=== PATIENT | female | born 1985 | race Caucasian/White ===

== ENCOUNTER 2023-08-20 19:50 | Emergency (ER) | payer OTHER, SELFPAY ==
[2023-08-20 20:00] VITALS: BP 208/131; PULSE 121; RESP 18; TEMP 36.8; O2SAT 96; BMI 37.3
[2023-08-20 20:09] LABS: Glucose Point of Care 152 mg/dL (70-110)
--- NOTE | 2023-08-20 20:15 | ED_ITS ---
HPI - Dental/Oral General: Chief complaint: Dental/Oral Stated complaint: fever, tooth ache Time Seen by Provider: 08/20/23 20:14 History of Present Illness: 38-year-old female with a history of hyp ertension and diabetes who presents with tooth pain. She does not take any of her medications because of pain in her mouth today. She is a bit hypertensive on presentation. Review of Systems Narrative: Constitutional symptoms: Negative except as documented in HPI. Skin symptoms: Negative except as documented in HPI. Eye symptoms: Negative except as documented in HPI. ENMT symptoms: Negative except as documented in HPI. Respiratory symptoms: Negative except as documented in HPI. Cardiovascular symptoms: Negative except as documented in HPI. Gastrointestinal symptoms: Negative except as documented in HPI. Genitourinary symptoms: Negative except as documented in HPI. Musculoskeletal symptoms: Negative except as documented in HPI. Neurologic symptoms: Negative except as documented in HPI. Psychiatric symptoms: Negative except as documented in HPI. Endocrine symptoms: Negative except as documented in HPI. [facility] PFSH: Medical History Diabetes mellitus Dyslipidemia Eclampsia History of eclampsia at 26 weeks of gestation. Headache Hypertension Status post CVA Family History Unknown No problems noted. Mother Hypertension Hyperlipidemia Social History Smoking and tobacco/nicotine status: never used tobacco/nicotine Alcohol intake: never Substance/Drug Use: never Physical Exam Narrative: EXAM NARRATIVE: General: Alert, no acute distress. Skin: warm and dry Head: Normocephalic Neck: Trachea midline Eye: Extraocular movements are intact. Ears, nose, mouth and throat: Oral mucosa moist. Right posterior lower molar appears infected with some surrounding swelling probable abscess. Respiratory: Respirations are non-labored Musculoskeletal: Normal ROM Neurological: Alert and oriented, No focal neurological deficit observed. Psychiatric: Cooperative, appropriate mood & affect. Course Vital Signs: Vital signs: Vital Signs Temperature 98.2 F 08/20/23 20:00 Pulse Rate 121 H 08/20/23 20:00 Respiratory Rate 18 08/20/23 20:00 Blood Pressure 208/131 08/20/23 20:00 Pulse Oximetry 96 08/20/23 20:00 Oxygen Delivery Me thod Room Air 08/20/23 20:00 MDM - Dental/Oral Medical Decision Making Patient has an obvious dental infection. She is going to follow-up with a dentist. She is given clindamycin and pain medication here in the emergency room. Assessment and plan: Dental abscess - Discharged home - Discussed plan with patient. Answered any questions. - Evaluation and treatment of this problem were appropriate in the emergency setting. Lab Data Laboratory Results POC Glucose 152 mg/dL (70-110) H 08/20/23 20:06 No radiology studies performed this visit Discharge Plan Discharge Patient Disposition: Home Clinical Impression: Dental abscess Condition: Stable Prescriptions: New clindamycin HCl 300 mg capsule 600 mg PO Q8H 10 Days Qty: 60 0RF diclofenac sodium 50 mg tablet,delayed release (DR/EC) 50 mg PO Q12H Qty: 20 0RF No Action verapamil 240 mg capsule,ext rel. pellets 24 hr 240 mg PO DAILY Complete Multivitamin Tablet 1 tab PO DAILY magnesium oxide 400 mg magnesium tablet 400 mg PO DAILY potassium gluconate 595 mg (99 mg) tablet 595 mg PO DAILY metoprolol succinate 100 mg tablet extended release 24 hr 100 mg PO DAILY metformin 500 mg tablet 500 mg PO BID lisinopril 10 mg tablet 10 mg PO DAILY Qty: 90 2RF rosuvastatin 10 mg tablet 10 mg PO DAILY Qty: 90 2RF Discharge Orders: Discharge ED (Routine); Ordered 08/20/23 Ordered By: Natacha Isbell Referrals: Keysha Rae MD [Primary Care Provider] - (Please follow-up with a dentist to soon as possible. You have been screened and evaluated and felt safe for discharge. Health conditions do change or evolve sometimes and as such it is important that you follow up with your Primary Doctor to be re checked, 3-5 days is a general good time frame for follow up. You are always welcome to return to the ED for re assessment if your symptoms are worsening or you have new concerns) Patient Instructions: Dental Abscess (ED) Coding Level of Care Code ED Crane Engineer for Jenna Avila
[2023-08-20] MEDS: HYDROcodone-acetaminophen 10-325 mg Tablet 1 TAB PO (20:41)
[2023-08-20] MEDS: ondansetron 4 MG Tablet PO (20:41)
[2023-08-20] MEDS: clindamycin 150 mg Capsule 600 MG PO (20:41)
[2023-08-20 20:44] VITALS: BP 188/81; PULSE 91; RESP 18; O2SAT 98
== END 2023-08-20 20:46 | disposition home or self-care (01) ==
PROVIDERS: Emergency Provider Emergency Medicine; PCP Family Medicine
DX: K04.7 Periapical abscess without sinus (principal); Z79.84 Long term (current) use of oral hypoglycemic drugs; E11.9 Type 2 diabetes mellitus without complications; E78.5 Hyperlipidemia, unspecified; I10 Essential (primary) hypertension; Z86.73 Personal history of transient ischemic attack (TIA), and cerebral infarction without residual deficits
CPT/HCPCS: 36416; 82962; 99283; Q0162